=== PATIENT | female | born 1980 | race Caucasian/White ===

== ENCOUNTER 2017-07-28 10:05 | Emergency (ER) | payer OTHER ==
[~2017-07-28] VITALS: Ht 156.2 cm; Wt 48.8 kg
[2017-07-28] MEDS ORDERED: ASPIRIN 81 MG TABLET CHEW ONE (10:40)
[2017-07-28] MEDS ORDERED: ASPIRIN 81 MG TABLET CHEW PO ONE (11:00)
[2017-07-28 11:04] LABS: HEMATOCRIT 45.5 % (34.6-47.8); HEMOGLOBIN 15.4 g/dL (11.7-16.4); WHITE BLOOD COUNT 8.6 x10^3/uL (3.4-10)
[2017-07-28 11:17] LABS: BLOOD UREA NITROGEN 10 mg/dL (7-18)
[2017-07-28 11:21] LABS: IS PT STATUS REG ER OR PRE ER? YES
[2017-07-28 11:58] VITALS: BP 103/57
== END 2017-07-28 11:59 | disposition home or self-care (01) ==
LOC: ED 10:43
DX: R07.89 Other chest pain (principal); F17.200 Nicotine dependence, unspecified, uncomplicated
CPT/HCPCS: 36415; 71020; 80048; 82040; 84484; 85025; 93005; 99285